=== PATIENT | male | born 1955 | race Caucasian/White ===

== ENCOUNTER 2017-02-04 13:58 | Inpatient (IN) | payer OTHER ==
[~2017-02-04] VITALS: Ht 167.6 cm; Wt 60.5 kg
[2017-02-04 11:40] VITALS: BP 123/75
[2017-02-04] MEDS ORDERED: SEROQUEL100 MG PO (14:33)
[2017-02-04] MEDS ORDERED: WEL100 PO (14:34)
[2017-02-04 15:13] LABS: BASOPHIL % 0.4 % (0-2); PLATELET COUNT 269 x10^3mcL (130-400)
[2017-02-04 15:19] LABS: CALCIUM 9.7 mg/dL (8.5-10.1); CARBON DIOXIDE 30.4 mmol/L (21-32); CHLORIDE SERUM 107 mmol/L (98-107); CREATININE SERUM 0.8 mg/dL (0.7-1.3); GFR1 > 60 mL/min; GLUCOSE SERUM 128 mg/dL (74-106); SODIUM SERUM 141 mmol/L (136-145)
[2017-02-04 15:24] LABS: ALBUMIN 3.6 g/dL (3.4-5.0); ALKALINE PHOSPHATASE 98 U/L (46-116); ALT/SGPT 20 U/L (16-63); AST/SGOT 21 U/L (15-37); BILIRUBIN TOTAL 0.2 mg/dL (0.20-1.00); MAGNESIUM 2.1 mg/dL (1.8-2.4); TOTAL PROTEIN, SERUM 7.9 g/dL (6.4-8.2)
[2017-02-04 15:51] LABS: UA SPECIFIC GRAVITY 1.015 (1.005-1.035); microscopic required? YES; urine erythrocyte TRACE (NEGATIVE)
[2017-02-04 15:53] LABS: AMPHETAMINE QUAL UR NONE DETECTED (NEG <=1000)
[2017-02-04 17:26] LABS: CHOLESTEROL/HDL RATIO 2.7
[2017-02-04 17:35] LABS: T3 TOTAL 1.04 ng/mL
[2017-02-04 17:48] LABS: FREE T4 0.83 ng/dL (0.76-1.46); FREE THYROXINE INDEX 2.5 ug/dL (1.4-4.5)
[2017-02-04 21:45] VITALS: BP 150/94
[2017-02-04 23:40] VITALS: BP 123/75
[2017-02-05 03:15] VITALS: BP 133/96
[2017-02-05 05:07] LABS: BASOPHIL % 0.7 % (0-2); PLATELET COUNT 250 x10^3mcL (130-400); RED CELL DISTRIBUTION WIDTH 14.2 % (11.5-14.5)
[2017-02-05 05:16] LABS: CARBON DIOXIDE 26.4 mmol/L (21-32); CHLORIDE SERUM 105 mmol/L (98-107); CREATININE SERUM 0.8 mg/dL (0.7-1.3); GFR1 > 60 mL/min; GLUCOSE SERUM 113 mg/dL (74-106); MAGNESIUM 1.8 mg/dL (1.8-2.4); PHOSPHOROUS 3.2 mg/dL (2.5-4.9); POTASSIUM SERUM 3.7 mmol/L (3.5-5.1); SODIUM SERUM 140 mmol/L (136-145)
[2017-02-05 07:30] VITALS: BP 141/97
[2017-02-05 10:23] VITALS: Ht 167.6 cm; Wt 60.5 kg
[2017-02-05 12:14] VITALS: BP 130/77
[2017-02-05 16:54] VITALS: BP 97/68
[2017-02-05 19:15] VITALS: BP 123/74
[2017-02-05 23:16] VITALS: BP 138/86
[2017-02-06 03:30] VITALS: BP 126/73
[2017-02-06 07:51] VITALS: BP 114/68; BP 138/93
[2017-02-06 14:12] VITALS: BP 122/92
[2017-02-06 18:08] VITALS: BP 111/73
[2017-02-06 21:26] VITALS: BP 120/79
[2017-02-07 06:22] VITALS: BP 122/72
[2017-02-07 09:50] VITALS: BP 122/66
[2017-02-07] MEDS ORDERED: ASPIRIN LOW DOS81 MG PO (11:02)
[2017-02-07] MEDS ORDERED: FLO4 PO (11:04)
[2017-02-07] MEDS ORDERED: LIPI10 PO (11:05)
[2017-02-07] MEDS ORDERED: BACTRIM DS1 TAB PO (11:06)
[2017-02-07] MEDS ORDERED: LAC PO (11:07)
[2017-02-07] MEDS ORDERED: TEST STRIPS1 EACH MC (11:11)
[2017-02-07] MEDS ORDERED: ACCU-CHEK1 EACH MC (11:12)
[2017-02-07] MEDS ORDERED: WELSR100 PO (11:20)
[2017-02-07] MEDS ORDERED: SEROQUEL100 MG PO (11:21)
[2017-02-07] MEDS ORDERED: ZESTRIL10 MG PO (11:26)
[2017-02-07 13:31] VITALS: BP 122/66
== END 2017-02-07 15:39 | disposition home or self-care (01) | DRG 885 ==
LOC: ED 13:58 → MU 16:48 → DU 16:48 → IC 20:11 → DU 02-06 11:39 → MU 02-07 06:30
PROVIDERS: Emergency Medicine; ADMIT Family Medicine
DX: F25.0 Schizoaffective disorder, bipolar type (principal); N39.0 Urinary tract infection, site not specified; R45.851 Suicidal ideations; S00.03XA Contusion of scalp, initial encounter; B18.2 Chronic viral hepatitis C; E83.39 Other disorders of phosphorus metabolism; F15.10 Other stimulant abuse, uncomplicated; E11.65 Type 2 diabetes mellitus with hyperglycemia; E11.51 Type 2 diabetes mellitus with diabetic peripheral angiopathy without gangrene; F17.210 Nicotine dependence, cigarettes, uncomplicated; I25.2 Old myocardial infarction; Z68.20 Body mass index [BMI] 20.0-20.9, adult; X79.XXXA Intentional self-harm by blunt object, initial encounter; Y92.018 Other place in single-family (private) house as the place of occurrence of the external cause
CPT/HCPCS: 80307; 82962; 83880; 84439; 90715; G0480; J0696; J7030; Q0092; Q0163

== ENCOUNTER 2017-02-09 19:39 | Emergency (ER) | payer OTHER ==
[~2017-02-09 19:39] MED LIST: ACCU-CHEK1 EACH MC; ASPIRIN LOW DOS81 MG PO; BACTRIM DS1 TAB PO; FLO4 PO; LAC PO; LIPI10 PO; SEROQUEL100 MG PO; TEST STRIPS1 EACH MC; WEL100 PO; WELSR100 PO; ZESTRIL10 MG PO
[2017-02-10] VITALS: BP 135/78
== END 2017-02-10 | disposition home or self-care (01) ==
LOC: ED 19:39
DX: T51.91XA Toxic effect of unspecified alcohol, accidental (unintentional), initial encounter (principal); Y92.89 Other specified places as the place of occurrence of the external cause

== ENCOUNTER 2017-04-08 20:05 | Inpatient (IN) | payer OTHER ==
[~2017-04-08] VITALS: Ht 167.6 cm; Wt 59.5 kg
--- NOTE | 2017-04-08 20:29 | NUR ---
PT BIB AMBULANCE WITH PT ON 5150 HOLD. PER MEDICS, PT WAS AT HOME WITH FAMILY AND WAS "BEATING SELF ON THE HEAD AGAINST A WALL TO HURT HIMSELF". PER MEDICS, PT WITH 1/2 INCH LAC TO R POSTERIOR OF HEAD. PT REPORTS TO "HITTING MY HEAD WITH A DUMB GUILLEN. I JUST LOST IT WITH MYSELF." PT DENIES SI OR HI AT THIS TIME. PT STATES TO VISUAL HALLUCINATIONS AT TIMES AND SEEING DOUBLE. PT DENIES AUDITORY HALLUCINATIONS. PT DENIES HAVING PAIN AT THIS TIME. PT ALSO STATES HE WAS IN ED APPROX [address] RESULT SHOWED "ABNORMAL WHITE MATTER IN THE PETERSEN MATTER". PT A&OX4, SPEECH IS CLEAR WITH FLIGHT OF THOUGHTS NOTED, RESP EVEN AND UNLABORED, BLEEDING TO HEAD ISCONTROLLED, NO LAC NOTED AT THIS TIME, ONLY ABRASIONS TO RIGHT ANTERIOR AND POSTERIOR OF HEAD. PT PERSONALLY BELONGINGS REMOVED FROM PT AND PLACED IN RADIO ROOM, PT IN FULL VIEW FROM NURSES STATION FOR SAFETY. PT ON FULL CM.
--- NOTE | 2017-04-08 20:50 | NUR ---
PT STATES TO CHRONIC URINARY DISCOMFORT X 1 YR, STATING NEED TO PUSH TO URINATE . PT HAD BM WHILE PROVIDING URINE SPECIMEN FOR UDS. WILL ASSIST PT INTO CLEAN GOWN.
[2017-04-08 21:05] LABS: CALCIUM 9.1 mg/dL (8.5-10.1); CARBON DIOXIDE 31.9 mmol/L (21-32); CHLORIDE SERUM 102 mmol/L (98-107); CREATININE SERUM 0.8 mg/dL (0.7-1.3); GFR1 > 60 mL/min; GLUCOSE SERUM 100 mg/dL (74-106); POTASSIUM SERUM 4.2 mmol/L (3.5-5.1); SODIUM SERUM 139 mmol/L (136-145)
[2017-04-08 21:07] LABS: BASOPHIL % 0.5 % (0-2); PLATELET COUNT 392 x10^3mcL (130-400)
[2017-04-08 21:10] LABS: ALBUMIN 3.5 g/dL (3.4-5.0); ALKALINE PHOSPHATASE 83 U/L (46-116); ALT/SGPT 18 U/L (16-63); AST/SGOT 17 U/L (15-37); BILIRUBIN TOTAL 0.2 mg/dL (0.20-1.00); TOTAL PROTEIN, SERUM 7.6 g/dL (6.4-8.2)
--- NOTE | 2017-04-08 21:23 | NUR ---
PT MEDICATED PER ORDER. SEE EMAR
--- NOTE | 2017-04-08 22:21 | NUR ---
PT STATES NEED TO URINATE. PT PROVIDED WITH URINAL AND PT NOTED TO BE MOANING WITH PAIN WHILE URINATING.
--- NOTE | 2017-04-08 23:33 | NUR ---
PT SLEEPING WITH RESP EVEN AND UNLABORED, WAKES TO NAME AND TACTILE STIMULI. PT ON FULL CM WITH NO DISTRESS NOTED.
[2017-04-09 00:22] LABS: microscopic required? YES; urine erythrocyte 3+ (NEGATIVE)
[2017-04-09 00:40] LABS: AMPHETAMINE QUAL UR NONE DETECTED (NEG <=1000)
--- NOTE | 2017-04-09 05:10 | NUR ---
PT A&OX4,NO ACUTE DISTRESS NOTED, RESP EVEN AND UNLABORED, SITTING UP IN BED, POSITIONED TO COMFORT, ON FULL CM. PT STATES TO BEING DIABETIC AND HAVING "HEART PROBLEMS AND MY HEART RATE IS USUALLY 120's" PT DENIES SI AT THIS TIME. PT NOTED WITH HR OF 72 AND VSS. PT BS 182 AT THIS TIME.
--- NOTE | 2017-04-09 05:34 | NUR ---
PT MEDICATED PER ORDER. SEE EMAR.
--- NOTE | 2017-04-09 05:43 | NUR ---
PT RESTING IN BED, A&XO4, NO ACUTE DISTRESS NOTED, RESP EVEN AND UNLABORED. PT STATES TO ROOMATE TAKING DUMBBELLS FROM PT HANDS TO KEEP HIM FROM INJURING SELF AT TIME OF INCIDENT.
--- NOTE | 2017-04-09 07:10 | NUR ---
PT'S EYES CLOSED BUT AROUSABLE, CM- VSS. WILL CONTINUE TO MONITOR PT. AWAITING PLACEMENT FOR PT.
--- NOTE | 2017-04-09 09:20 | NUR ---
PT'S EYES CLOSED BUT AROUSABLE. CM- SR. VSS. WILL CONTINUE TO MONITOR PT
--- NOTE | 2017-04-09 10:01 | NUR ---
PT'S EYES CLOSED BUT AROUSABLE, CM-SR. VSS. WILL CONTINUE TO MONITOR PT
--- NOTE | 2017-04-09 13:00 | NUR ---
PT AMBULATED TO BATHOOM WITH STEADY GAIT
--- NOTE | 2017-04-09 14:02 | NUR ---
PT GIVEN LUNCH TRAY, PER MD ORDER
[2017-04-09 14:40] LABS: T3 TOTAL 1.23 ng/mL
[2017-04-09 14:48] LABS: CHOLESTEROL/HDL RATIO 3.7; MAGNESIUM 2.2 mg/dL (1.8-2.4); PHOSPHOROUS 3.9 mg/dL (2.5-4.9)
[2017-04-09 15:00] LABS: FREE THYROXINE INDEX 2.5 ug/dL (1.4-4.5)
--- NOTE | 2017-04-09 16:31 | NUR ---
WAITING FOR ROOM AVAILABILITY
--- NOTE | 2017-04-09 16:54 | NUR ---
REPORT GIVEN TO KHLOE
--- NOTE | 2017-04-09 17:34 | NUR ---
LYNNE TERAN RN AT BEDSIDE AND PERFORMING ADMISSION ASSESSMENT ON PATIENT.
[2017-04-09 17:48] VITALS: BP 140/84
--- NOTE | 2017-04-09 17:56 | NUR ---
RECEIVED PATIENT FROM ED VIA GUERNEY, ALERT AND ORIENTED, TELE # 11 SR, IV ACCESS TO L HAND WNL, NO C/O PAIN AT THIS TIME, ORIENTED PATIENT TO ROOM AND SURROUNDINGS, BED RAILS UP X 2, CALL LIGHT WITHIN REACH, WILL ENDORSE CARE TO PRIMARY NURSE KHLOE BLOOM
--- NOTE | 2017-04-09 19:20 | NUR ---
REPORT TAKEN FROM KHLOE. ALL CARE ENDORSSED.
--- NOTE | 2017-04-09 19:40 | NUR ---
RECEIVED PT IN BED AWAKE ALERT AND ORIENTED X4. PT IS 5150 HOLD. PT HIT HIS HEAD WITH HAND WEIGHT LEFT, NO OPEN WOUND BUT PT HAD PAIN AT PLACE. PT WAS TRYING TO KILL HIMSELF. BUT PT IS CALM AT TIME. WILL MEDICATE. SITTER AT PT BEDSIDE, PT DENIES HALLUCINATION. RESPIRATION IS EVEN AND UNLABORED. BOWEL SOUND [id number]. IV TO LH INTACT. SAFETY IN PLACE. WILL CONTINUE TO MONITOR.
[2017-04-09 20:28] VITALS: BP 134/77
--- NOTE | 2017-04-10 00:32 | NUR ---
REPORT GIVEN TO VERONA, ALL CARE ENDORSSED.
--- NOTE | 2017-04-10 01:58 | NUR ---
TOOK OVER PATIENT CARE FROM DHARA, REPORT GIVEN. PATIENT SLEEPING THIS TIME .
[2017-04-10 05:10] VITALS: BP 115/79
--- NOTE | 2017-04-10 05:15 | NUR ---
CHECKED AT INTERVALS FOR NEEDS AND SAFETY. NO HALLUCINATION NOTED, REMAINED CALM AND QUITE THE ENTIRE SHIFT.
--- NOTE | 2017-04-10 07:00 | NUR ---
PT WAS ENDORSE TO ME THIS MORNING. PT IS SLEEPING VERY COMFORTABLE. PT IS 50/51 HOLD. PT IS BREATHING EVEN AND UNLABORED. IV TO THE L HAND. NS AT 100 ML/HR. NO REDNESS OR SWELLING NOTED. CALL LIGHT IN REACH. BED IN LOW POSITION BY NURSE STATION. WILL CONTINUE PLAN OF CARE.
[2017-04-10 09:40] VITALS: BP 123/82
--- NOTE | 2017-04-10 16:50 | NUR ---
WENT IN WITH DR SCHREIBER TO SPEAK WITH PATIENT REGARDING GOING TO [facility] VOLUNTARILY. PT AGREEABLE TO PLAN. EXPRESSED WILLINGNESS TO GO. CASE MANAGEMENT, DR ANDERSON, AND [facility] MADE AWARE. [facility] WILLING TO TAKE PATIENT ON A VOLUNTARY BASIS.
--- NOTE | 2017-04-10 17:37 | NUR ---
PT HAS BEEN ON PHONE SPEAKING WITH SOMEONE. PT NOW SAYING HE HAS TO GO AND DOES NOT WANT TO GO TO [facility] ANYMORE.
--- NOTE | 2017-04-10 17:45 | NUR ---
PER DR SCHREIBER (PSYCH), PT [id number] CLEAR. CASE MANAGEMENT MADE AWARE.
--- NOTE | 2017-04-10 17:46 | NUR ---
DR ANDERSON AT BEDSIDE TO SPEAK WITH PATIENT.
--- NOTE | 2017-04-10 17:59 | NUR ---
PT IS SITTING IN CHAIR. PT IS A/O X4. NO RESP DISTRESS OR DISCOMFORT NOTED. PT DENIES ANY PAIN AT THIS TIME. WILL ENDORSE PT TO INCOMING NURSE.
--- NOTE | 2017-04-10 18:35 | NUR ---
EXPLAINED ALL DISCHARGE INSTRUCTIONS TO PT. PT AGREED AND SIGNED ALL DOCUMENTS. PT IS A/O X4, DENIES HALLUCINATIONS AT THIS TIME. PT IS GETTING DRESS AND HE IS READY TO LEAVE WILL CALL NURSE STATION.
--- NOTE | 2017-04-10 20:47 | NUR ---
PT ALERT AND AWAKE. VERBAL WITH CLEAR SPEECH. NO S/S OF DISTRESS NOTED. DENIES ANY PAIN. IV TO LEFT HAND DISCONTINUED; TOLERATED WELL. PT DISCHARGED HOME IN STABLE CONDITION WITH ALL PERSONAL BELONGINGS AND ESCORTED BY SECURITY PROFESSIONALS DOWN TO CAB.
== END 2017-04-10 20:44 | disposition home or self-care (01) | DRG 917 ==
LOC: ED 20:05 → DU 04-09 13:00
PROVIDERS: Emergency Medicine; ADMIT Family Medicine
DX: T40.7X1A Poisoning by cannabis (derivatives), accidental (unintentional), initial encounter (principal); G92 Toxic encephalopathy; N39.0 Urinary tract infection, site not specified; D68.69 Other thrombophilia; F25.0 Schizoaffective disorder, bipolar type; B18.2 Chronic viral hepatitis C; I10 Essential (primary) hypertension; E11.59 Type 2 diabetes mellitus with other circulatory complications; E11.65 Type 2 diabetes mellitus with hyperglycemia; E11.51 Type 2 diabetes mellitus with diabetic peripheral angiopathy without gangrene; E78.5 Hyperlipidemia, unspecified; F15.10 Other stimulant abuse, uncomplicated; F14.10 Cocaine abuse, uncomplicated; F12.10 Cannabis abuse, uncomplicated; F17.210 Nicotine dependence, cigarettes, uncomplicated; Z91.14 Patient's other noncompliance with medication regimen; Z79.82 Long term (current) use of aspirin; Z79.84 Long term (current) use of oral hypoglycemic drugs; Y92.009 Unspecified place in unspecified non-institutional (private) residence as the place of occurrence of the external cause
CPT/HCPCS: 82962; 83880; 84439; G0480; J1200; J7030; Q0092

== ENCOUNTER 2017-06-13 09:57 | Emergency (ER) | payer OTHER ==
[~2017-06-13] VITALS: Ht 172.7 cm; Wt 71.7 kg
[2017-06-13 11:39] VITALS: BP 130/74
== END 2017-06-13 11:41 | disposition home or self-care (01) ==
LOC: ED 09:57
DX: S61.211A Laceration without foreign body of left index finger without damage to nail, initial encounter (principal); S51.812A Laceration without foreign body of left forearm, initial encounter; E11.9 Type 2 diabetes mellitus without complications; I25.2 Old myocardial infarction; F17.210 Nicotine dependence, cigarettes, uncomplicated; W22.09XA Striking against other stationary object, initial encounter; Y93.89 Activity, other specified; Y99.8 Other external cause status; Y92.89 Other specified places as the place of occurrence of the external cause
CPT/HCPCS: J2001; Q0092

== ENCOUNTER 2017-07-31 23:15 | Emergency (ER) | payer OTHER ==
[~2017-07-31] VITALS: Ht 170.2 cm; Wt 65.8 kg
[2017-08-01 00:12] LABS: BASOPHIL % 0.5 % (0-2); PLATELET COUNT 247 x10^3mcL (130-400)
[2017-08-01 00:18] LABS: RED CELL DISTRIBUTION WIDTH 15.3 % (11.5-14.5)
[2017-08-01 00:24] LABS: CHLORIDE SERUM 104 mmol/L (98-107); CREATININE SERUM 0.8 mg/dL (0.7-1.3); GFR1 > 60 mL/min; GLUCOSE SERUM 123 mg/dL (74-106); POTASSIUM SERUM 3.6 mmol/L (3.5-5.1); SODIUM SERUM 142 mmol/L (136-145)
[2017-08-01 00:36] LABS: ALBUMIN 3.4 g/dL (3.4-5.0); ALKALINE PHOSPHATASE 79 U/L (46-116); ALT/SGPT 21 U/L (16-63); AST/SGOT 19 U/L (15-37); BILIRUBIN TOTAL 0.2 mg/dL (0.20-1.00); T4(THYROXINE) 6.9 ug/dL (4.7-13.3); TOTAL PROTEIN, SERUM 7.2 g/dL (6.4-8.2)
[2017-08-01 00:41] LABS: AMPHETAMINE QUAL UR NONE DETECTED (NEG <=1000)
[2017-08-01 09:01] VITALS: BP 130/80
== END 2017-08-01 09:20 ==
LOC: ED 23:15
PROVIDERS: Emergency Medicine
DX: F25.9 Schizoaffective disorder, unspecified (principal); E11.9 Type 2 diabetes mellitus without complications; F31.9 Bipolar disorder, unspecified; B19.20 Unspecified viral hepatitis C without hepatic coma; I25.2 Old myocardial infarction; F17.210 Nicotine dependence, cigarettes, uncomplicated; F12.90 Cannabis use, unspecified, uncomplicated
CPT/HCPCS: 36415; 83880; G0480

== ENCOUNTER 2019-09-17 21:00 | Inpatient (IN) | payer OTHER ==
[~2019-09-17] VITALS: Ht 160 cm; Wt 62.0 kg
--- NOTE | 2019-09-17 21:00 | NUR ---
PT ARIVED VIA GUERNEY ACCOMPANIED BY TRANSPORT ENERGY SCHEDULER FROM [place], PT IS A/OX4, NO COMPLAINTS OF BROWN OR DIZZINESS AT THIS TIME, PT DENIES PAIN OR SOB AT THIS TIME, COMPLAINS OF DYSPNEA UPON ECXERHTION, PERIPHERAL PULSES PALPABLE THROUGHOUT, NO EDEMA NOTED, LUNG SOUNDS CTA, NO SOB AT THIS TIME, BOWEL SOUNDS ACTIVE, ABD, SOFT, ROUND, NONTENDER, PT VOIDS FREE OF BURNING OR IRRITATION, SMALL SKIN TEAR TO THE 5TH DIDGIT OF THE LEFT FOOT, ALL PT NEEDS ATTENDED TO, SIDE RAILS UP X2, BED IN THE LOWEST POSITION, CALL LIGHT WITHIN REACH, SAFETY PRECAUTIONS IN PLACE, WILL CONTINUE TO MONITOR.
[2019-09-17] MEDS ORDERED: VRAYLAR3 MG PO (21:37)
[2019-09-17] MEDS ORDERED: COR6 PO (21:39)
[2019-09-17] MEDS ORDERED: PLA75 PO (21:40)
[2019-09-17] MEDS ORDERED: SEROQUEL300 MG PO (21:41)
[2019-09-17 21:43] VITALS: BP 108/81
--- NOTE | 2019-09-18 00:24 | NUR ---
PT RESTING IN BED WITH NO ACUTE DISTRESS NOTED AT THIS TIME, PT DENIES PAIN OR SOB AT THIS TIME, ALL PT NEEDS ATTENDED TO, SAFETY PRECAUTIONS IN PLACE, WILL CONTINUE TO MONITOR
[2019-09-18 02:05] VITALS: BP 108/81
--- NOTE | 2019-09-18 02:49 | NUR ---
PT RESTING IN BED WITH NO DISTRESS NOTED AT THIS TIME, NO SIGNS OF PAIN, RESPIRATIONS EVEN AND UNLABORED, ALL PT NEEDS ATTENDED TO, SAFETY PRECAUTIONS IN PLACE, WILL CONTINUE TO MONITOR
[2019-09-18 05:07] VITALS: BP 107/79
--- NOTE | 2019-09-18 05:17 | NUR ---
PT RESTED COMFORTABLY THROUGH THE NIGHT, PT DENIED PAIN THROUGH SHIFT, PT HAD NO EPISODEDS OF CHEST PAIN OR SOB, ALL PT NEEDS ATTENDED TO DURING CARE, WILL CONTINUE TO MONITOR AND ENDORSE CARE ONCOMING SHIFT
[2019-09-18 06:21] LABS: UA SPECIFIC GRAVITY 1.015 (1.005-1.035); microscopic required? YES; urine erythrocyte TRACE (NEGATIVE)
[2019-09-18 06:31] LABS: AMPHETAMINE QUAL UR NONE DETECTED (See below)
[2019-09-18 06:37] LABS: BASOPHIL % 1.2 % (0-2); PLATELET COUNT 219 x10^3mcL (130-400)
[2019-09-18 06:58] LABS: CALCIUM 8.4 mg/dL (8.5-10.1); CARBON DIOXIDE 23.4 mmol/L (21-32); CHLORIDE SERUM 104 mmol/L (98-107); GFR1 > 60 mL/min; GLUCOSE SERUM 135 mg/dL (74-106); MAGNESIUM 2.1 mg/dL (1.8-2.4); POTASSIUM SERUM 3.4 mmol/L (3.5-5.1); SODIUM SERUM 138 mmol/L (136-145)
[2019-09-18 07:01] LABS: MAGNESIUM 2.1 mg/dL (1.8-2.4); PHOSPHOROUS 3.9 mg/dL (2.5-4.9)
[2019-09-18 07:02] LABS: T3 TOTAL 0.99 ng/mL
[2019-09-18 07:09] LABS: FREE T4 0.93 ng/dL (0.76-1.46); T4(THYROXINE) 5.5 ug/dL (4.7-13.3)
--- NOTE | 2019-09-18 07:25 | NUR ---
RECEIVED PT FROM REAL ESTATE ADMINISTRATIVE ASSISTANT, ASSESSED AND DOCUMENTED. STABLE. DENIES ANY PAIN THIS TIME. SAFTEY PRECAUTIONS ARE IN PLACE. WILL MONITOR.
[2019-09-18 07:46] VITALS: BP 115/80
[2019-09-18 08:31] LABS: RED CELL DISTRIBUTION WIDTH 20.6 % (11.5-14.5)
[2019-09-18 08:32] LABS: rbc morphology (normal/abnorm) ABNORMAL (NORMAL)
--- NOTE | 2019-09-18 09:00 | NUR ---
INFORMED ABOUT K=3.4. SHE SAID THAT IS OK AND NOT PLANNING TO GIVE ANY MEDICINE. CALLED DIETARY AND INFORMED, REQUEST FOR BANANA AND AVOCADO IN HIS MEALS. PT IS STABLE.
--- NOTE | 2019-09-18 09:42 | NUR ---
CANCELLATION REQUESTED FOR ECHOCARDIOGRAM
--- NOTE | 2019-09-18 11:30 | NUR ---
PT CALLED AND SAID HE IS HAVING SOB. PT IS ANXIOUS. V/S CHECKED AND STABLE. BP=94/69 WITH MAP 77, HR 92, RESP=20 AND SPO2 98% IN RA. DENIES ANY CHEST PAIN THIS TIME. RHYTHM SR WITH ST DEPRESSED, APPLIED O2 2L VIA N/C FOR COMFORT. INFORMED RT FOR BREATHING TX, CHARGE NURSE AWARE, INFORMED ABOUT EVERYTHING. PT RESTING IN BED COMFORTABLY THIS TIME. PT WAS TALKING ABOUT HIS GIRLFRIEND AND WAS GETTING ANXIOUS AND ANGRY, WENT TO USE THE RESTROOM AND CAME BACK TO BED, RESTING IN THE BED NOW. PT SAID SOB IS BETTER NOW, NOTICED PT CRYING SOME TIMES. EMOTIONAL SUPPORT GIVEN, WILL CLOSELY MONITOR THE PT. DOCTOR AWARE.
[2019-09-18 12:07] VITALS: BP 94/69
--- NOTE | 2019-09-18 12:59 | NUR ---
PT IS STILL ANXIOUS, CRYING AND GETTING ANGRY SOMETIMES, HALLUCINATING LIKE TALKING TO SOMEONE SOMETIMES, ALSO EPISODES OF GETTING HAPPY ALSO NOTED. INFORMED ABOUT PT MOOD CHANGE. SHE ORDERED ATIVAN PO 1MG AND GIVEN. WILL MONITOR. INFORMED PT ABOUT HOSPITAL PHARMACY DOESNOT CARRY ONE OF HIS HOME MED VRAYLAR, HE SAID HE WILL TELL HIS GIRLFRIEND TO BRING THE MED.
--- NOTE | 2019-09-18 14:00 | NUR ---
PT RESTING IN BED COMFORTABLY, DENIES ANY PAIN. STABLE. NO ANXIETY NOTED THIS TIME.
--- NOTE | 2019-09-18 16:00 | NUR ---
CAME AND EXPLAINED TO THE PT ABOUT CARDIAC CATH TOMORROW AND PT SIGNED CONSENT. STABLE.
[2019-09-18 16:08] VITALS: BP 105/72
--- NOTE | 2019-09-18 19:10 | NUR ---
PT RESTING IN BED COMFORTABLY, STABLE. DENIES ANY PAIN. GAVE REPORT TO CARTON PACKAGING MACHINE OPERATOR NURSE.
--- NOTE | 2019-09-18 19:15 | NUR ---
RECIEVED PT RESTING IN BED WITH NO ACUTE DISTRESS NOTED AT THIS ITME WITH GIRLFRIEND AT BEDSIDE, ASSESSMENT PERFORMED AT THIS TIME, PT DENIES PAIN OR SOB AT THIS TIME, PT IS A/OX4 WITH NO COMPLAINTS OF BROWN OR DIZZINESS AT THIS TIME, ALL NEEDS AND CONCERNS ATTENDED TO, SAFETY PRECAUTIONS IN PLACE, WILL CONTINUE TO MONITOR
--- NOTE | 2019-09-18 20:10 | NUR ---
TALKED TO DR NOLAN ABOUT PT POTASSIUM LEVEL OF 3.4 AND THAT HE HAS LASIX ORDERED, SHE SAID NO COVERAGE AND OK TO GIVE LASIX
[2019-09-18 20:11] VITALS: BP 112/71
[2019-09-18 23:12] LABS: CALCIUM 8.8 mg/dL (8.5-10.1); CARBON DIOXIDE 30.8 mmol/L (21-32); CHLORIDE SERUM 104 mmol/L (98-107); CREATININE SERUM 1.1 mg/dL (0.7-1.3); GFR1 > 60 mL/min; POTASSIUM SERUM 3.4 mmol/L (3.5-5.1); SODIUM SERUM 140 mmol/L (136-145)
[2019-09-18 23:22] LABS: BASOPHIL % 0.9 % (0-2); PLATELET COUNT 206 x10^3mcL (130-400)
[2019-09-18 23:36] LABS: GLUCOSE SERUM 48 mg/dL (74-106)
--- NOTE | 2019-09-18 23:42 | NUR ---
LAB CALLED AND INFORMED ME OF GLUCOSE FROM [facility] WAS 48, CHECKED PT, PT WAS ASYMPTOMATIC, SPOT CHECKED THE BLOOD SUGAR AND IT WAS 91, INFORMED DR NOLAN, SAID IT IS OK, NO NEW ORDERS AT THIS TIME.
--- NOTE | 2019-09-19 00:33 | NUR ---
PT RESTING IN BED WITH NO ACUTE DISTRESS NOTED AT THIS TIME, PT DENIES PAIN OR SOB AT THIS TIME, ALL PT NEEDS ATTENDED TO AT THIS TIME, SAFETY PRECAUTIONS IN PLACE, WILL CONTINUE TO MONITOR
--- NOTE | 2019-09-19 05:05 | NUR ---
PT RESTED COMFORTABLY THROUGH THE NIGHT WITH NO DISTRESS NOTED DURING CARE, PT DENIED PAIN OR SOB THROUGH SHIFT, ALL PT NEEDS WERE ATTENDED TO DURING CARE, SAFETY PRECAUTIONS REMAINED IN PLACE, DURING SHIFT, WILL CONTINUE TO MONITOR AND ENDORSE CARE
[2019-09-19 05:39] VITALS: BP 99/68
--- NOTE | 2019-09-19 06:27 | NUR ---
CHG PREP WIPES DONE
[2019-09-19 06:29] LABS: PLATELET COUNT 210 x10^3mcL (130-400)
[2019-09-19 06:37] LABS: CALCIUM 8.7 mg/dL (8.5-10.1); CARBON DIOXIDE 29.9 mmol/L (21-32); CHLORIDE SERUM 104 mmol/L (98-107); CREATININE SERUM 1.1 mg/dL (0.7-1.3); GFR1 > 60 mL/min; GLUCOSE SERUM 118 mg/dL (74-106); POTASSIUM SERUM 3.8 mmol/L (3.5-5.1); SODIUM SERUM 139 mmol/L (136-145)
[2019-09-19 06:50] LABS: RED CELL DISTRIBUTION WIDTH 20.8 % (11.5-14.5)
--- NOTE | 2019-09-19 07:35 | NUR ---
RECEIVED HAND OFF REPORT FROM KAI BLOOM, PATIENT LAYING UPINE IN BED, A/O X4, WITH NO COMPLAINTS. PATIETN AWARE OF PENDING [employer] PROCEDURE. TELE [address] ON PATIETN SHOWING SINUS TACH. NPO SINCE MIDNIGHT [facility] NURSES CAME AND TRANSPORTED PATIENT AND CHART TO [employer]. REMOVED TELE 18 AND TAKEN TO GENESIS IN MONITOR ROOM. CALLED ICU TO GIVE REPORT TO MERCEDES. GOING TO BE IN ICU BED 8 AFTER PROCEDURE
[2019-09-19 09:46] VITALS: BP 109/53
--- NOTE | 2019-09-19 09:46 | NUR ---
RECEIVED FROM ORE MINER VIA ICU BED, S/P LEFT HEART CATHERIZATION AND CORONARY ANGIOGRAPHY AND PCI OF PROXIMAL AMD MID LAD WITH ARNAUD X2. SEEN PATIENT AWAKE,ALERT, ORIENTED X3. BREATHING E/U ON ROOM AIR. RIGHT GROIN PUNCTURE SITE WITH DRSG NOTED CDI, NO BLEEDNING, HEMATOMA OR SWELLING TO SITE. PATIENT MADE AWARE NOT TO MOVE RLE AND STAYS BEDREST FOR 8HRS. KPET HOB NOT EXCEED 10 DEGREE. STATED BACK PAIN IS 8/10 ON PAIN SCALE, REFUSED PAIN MEDS OFFERRED. STATED JUST WANTED TO SLEEP. S/L TO LFA INTACT AND PATENT. ORIEINTING TO ROOM ENVIRONMENT. CALL LIGHT PLACED WITHIN EASY REACH. SIDERAILS UP X2. WILL CONTINUE TO MONITOR PER PROTOCAL.
--- NOTE | 2019-09-19 10:30 | NUR ---
DELIVERED PATIENT BELONGINGS TO ICU BED 8. GAVE VERBAL REPORT TO MERCEDES BLOOM
--- NOTE | 2019-09-19 11:06 | NUR ---
CONSTANTLY MOANING STATED FEELING SO ANXIOUS. DOCTOR ISRAEL HERE ORDER ATIVAN PRN. ATIVAN 1MG IVP SLOWLY GIVEN. WILL CONTINUE TO MONITOR.
--- NOTE | 2019-09-19 11:11 | NUR ---
SEEN BY DOCTOR ENNIS AMD MEDICAL TEAM. PATIENT MADE AWARE OF CURRENT CONDITION AND PLAN OF CARE.
--- NOTE | 2019-09-19 11:58 | NUR ---
VOIDED X1 USING URINAL 250ML YELLOW URINE IN COLOR.
[2019-09-19 12:00] VITALS: BP 116/89
--- NOTE | 2019-09-19 12:37 | NUR ---
AWAKE, HAVING CARDIAC DIET LUNCH, TOLERATING WELL, NO ASPIRATION. SCHEDULED MEDS GIVEN.
--- NOTE | 2019-09-19 13:42 | NUR ---
PATIENT KEEPS SITTING UP IN BED AT THIS TIME. PATIENT EDUCATED ON THE IMPORTANCE OF LYING FLAT, POST CARDIAC CATH PROCEDURE. PATIENT VERBALIZED UNDERSTANDING AND MEDICATED WITH ATIVAN AT THIS TIME, SEE EMAR. WILL CONTINUE TO MONITOR.
--- NOTE | 2019-09-19 14:47 | NUR ---
SEEN BY DOCTOR DAVID. PATIENT DENIES CHEST PAIN STATED TIRED ON HIS RIGHT LEG AND BACK. RIGHT GROIN PUNCTURE SITE WITH DRSG DRY/INTACT. PER [facility] ICU DIRECTOR, PATIENT CAN SIT UP AFTER 1530HRS. PATIENT MADE AWARE.
[2019-09-19 16:00] VITALS: BP 117/87
--- NOTE | 2019-09-19 16:22 | NUR ---
LAYING ON HIS LEFT SIDE, NO BLEEDING TO RIGHT GROIN, DENIES PAIN, UD=378, S/L TO LFA INTACT AND PATENT. VOIDED X2 AFTER HEART CATHERIZATION.
--- NOTE | 2019-09-19 17:44 | NUR ---
ABLED TO FINISH 100% OF CARDIAC DINNER. VOIDED X1 USING URINAL DURING DINNER. NOTED PATIENT'S MOOD CHANGED VERY OFTEN THROUGHOUT SHIFT, MOST OF THE TIME HE APPEARS ANXIOUS, ATIVAN PRN GIVEN X2 DURING THE SHIFT. REORIENTATION PROVIDED AT TIMES. ALL NEEDS ATTENDED. FALL PRECAUTION MAINTAINED.
[2019-09-19 19:30] VITALS: BP 102/81
--- NOTE | 2019-09-19 19:30 | NUR ---
REC'D REPORT FROM SWEETIE BLOOM TO ASSUME CARE. A&OX4 PT RESPONDS TO VERBAL COMMANDS. PERRLA NOTED. EENT FREE OF DISCHARGE, NO JVD NOTED. PT IS BREATHING E/U LUNG SOUNDS CTA. CHEST RISE EQUAL AND SYMMETRICAL, RR IS ELEVATED 30S. EQUIPMENT STERILIZER IN PLACE SHOWING SINUS TACH, HR 106, BP 102/81, MAP 87. PT REPORTS CHEST PAIN 4-5/10. PT DESCRIBES PAIN INTERMITTENT PRESSURE. CHEST WALL STABLE. PULSES ARE MOD X4 CAP REFILL <3 SEC. PERIPHERAL IV NOTED TO LFA INTACT, PATENT, DSG CDI, SALINE LOCK. PT IS AMBULATORY. CARDIAC DIET. ABD IS SOFT AND FLAT. BOWEL SOUNDS ACTIVE X4 QUADRANTS. PT VOIDS FREELY W/ URINAL. R GROIN ANGIO SITE FROM PCI NO ACTIVE BLEEDING NOTED, DSG CDI. PT HAS A HX OF METH USE, PSYCHOSIS, BIPOLAR DISORDER, AND SCHIZOAFFECTIVE TYPE. PT IS SEEN BEING BYRD AT TIMES. ALL NEEDS MET AT THIS TIME. WILL CONTINUE TO MONITOR.
--- NOTE | 2019-09-19 20:00 | NUR ---
ALL DUE ROUTINE MEDS PROVIDED, REASSESS FOR CHEST PAIN. PT STATES FEELING RELIEF.
[2019-09-19 23:02] VITALS: BP 98/64
[2019-09-20 03:26] VITALS: BP 97/58
[2019-09-20 05:16] LABS: BASOPHIL % 0.6 % (0-2); PLATELET COUNT 207 x10^3mcL (130-400)
[2019-09-20 05:18] LABS: RED CELL DISTRIBUTION WIDTH 20.8 % (11.5-14.5)
[2019-09-20 05:20] LABS: rbc morphology (normal/abnorm) ABNORMAL (NORMAL)
[2019-09-20 05:26] LABS: CALCIUM 8.4 mg/dL (8.5-10.1); CHLORIDE SERUM 107 mmol/L (98-107); CREATININE SERUM 1.1 mg/dL (0.7-1.3); GFR1 > 60 mL/min; GLUCOSE SERUM 124 mg/dL (74-106); MAGNESIUM 2.1 mg/dL (1.8-2.4); PHOSPHOROUS 3.6 mg/dL (2.5-4.9); POTASSIUM SERUM 4.2 mmol/L (3.5-5.1); SODIUM SERUM 140 mmol/L (136-145)
[2019-09-20 07:20] VITALS: BP 106/73
--- NOTE | 2019-09-20 07:20 | NUR ---
PATIENT AWAKE AND ORIENTED TO PERSON, PLACE AND TIME. PATIENT DENIES SHORTNESS OF BREATH, NAUSEA/VOMITING AT THIS TIME. TELE # 8 SHOWS SINUS RHYTHMS WITH EPISODES OF TACHYCARDIA. IV HEPLOCK AT LFA. SCDS TO BLE. CALL LIGHT WITHIN REACH. SIDE RAILS UP X3. BED IS AT LOWEST POSITION AND ALARM IS ON.
[2019-09-20 07:53] VITALS: Ht 160 cm; Wt 62.0 kg
--- NOTE | 2019-09-20 08:11 | NUR ---
PATIENT C/O ANXIETY AND ASKED FOR ATIVAN. ATIVAN 1MG IVP MEDICATED TO THE PATIENT.
--- NOTE | 2019-09-20 10:33 | NUR ---
PATIENT ROUNDS WITH DR. ENNIS AND RESIDENTS. CHARGE NURSE AND PRIMARY NURSE AT BEDSIDE. UPDATES PROVIDED AND POC DISCUSSED. WILL CONTINUE TO MONITOR.
[2019-09-20 11:15] VITALS: BP 104/57
--- NOTE | 2019-09-20 11:20 | NUR ---
PATIENT IS RESTLESS/AGITATED: GETTING OUT OF BED, PUSHING TABLE AND BACK TO BED TWICE. THEN PATIENT MOVING IN BED VERY OFTEN; ATIVAN 1MG IVP WAS ADMINISTERED TO THE PATIENT TO CALM HIM DOWN.
--- NOTE | 2019-09-20 12:17 | NUR ---
PATIENT WAS YELLING AT NURSE AND WANTED TO LEAVE HOSPITAL AMA. PATIENT WAS EXPLAINED THAT HE SHOULD WAIT FOR DOCTOR TO DISCHARGE HIM, BUT PATIENT SAID, "I WANT TO GET OUT OF HERE NOW." DR. FREDY HERNANDEZ WAS PAGED.
--- NOTE | 2019-09-20 12:24 | NUR ---
PATIENT PULLED OUT TELE MONITOR AND REFUSED TO BE PLACED BACK ON TO TELE.
--- NOTE | 2019-09-20 14:17 | NUR ---
REPORT GIVEN TO WOLF ROQUE FROM [facility]. CONCERNS ADDRESED. PATIENT WILL BE TRANSFERRED TO ROOM 238B, [facility].
--- NOTE | 2019-09-20 14:33 | NUR ---
THE PATIENT IS TRANSFERRED TO ROOM 238B, [facility] VIA WHEELCHAIR; ALL BELONGINGS INCLUDING HIS WALLET SENT TO THE ROOM WITH HIM (PATIENT IS HOLDING HIS WALLET IN HIS HANDS). MYA, ACCEPTING NURSE RECEIVED THE PATIENT.
--- NOTE | 2019-09-20 14:45 | NUR ---
PATIENT WAS RECEIVED FROM ICU. PATIENT DENIES ANY PAIN OR DICOMFORT AT THIS TIME. PATIENT IS A&OX4, FOLLOWS COMMANDS AND COOPERATES WELL. LUNG SOUNDS CTA BILATERALLY. DENIES ANY CHEST PAIN. NORMOACTIVE BSX4, VOIDS WELL. ALL QUESTIONS AND CONCERNS HAVE BEEN ADDRESSED AT THIS TIME. WILL CONTINUE TO MONITOR PATIENT.
--- NOTE | 2019-09-20 17:40 | NUR ---
PATIENT IS A&OX4, FOLLOWS COMMANDS AND COOPERATES WELL. FRIEND IS PRESENT. PATIENT IS CURRENTLY RESTING AND EATING DINNER WHILE TALKING TO FRIEND. PATIENT DENIES ANY PAIN AT THIS TIME. NO DISCOMFORT HAS BEEN STATED. DENIES CHEST PAIN. IV SITE IS CDI AND FLUSHES WELL. ALL QUESTIONS AND CONCERNS HAVE BEEN ADDRESSED. WILL CONTINUE TO MONITOR.
[2019-09-20 18:14] VITALS: BP 108/67
--- NOTE | 2019-09-20 18:57 | NUR ---
PATIENT REPORTED THAT HE WANTED TO LEAVE AMA. MD WAS ABLE TO TALK TO PATIENT IN ORDER TO STAY DUE TO BEING DEEMED UNSTABLE, YET NOT ON A 5150 HOLD. PATIENT AGREED AND WAS WILLING TO TAKE ATIVAN.
--- NOTE | 2019-09-20 20:00 | NUR ---
PT A/A/O X4, GIRLFRIEND AT BEDSIDE. PT WAS GOING TO AMA BUT CHANGED HIS MIND. A/A/O X4. DENIES DIZZINESS AND HEADACHE. BREATH SOUNDS CLEAR. BREATHING EVEN AND UNLABORED ON ROOM AIR. DENIES CHEST PAIN AND PRESSURE. BOWEL SOUNDS ACTIVE. NO C/O N/V AND ABD PAIN. DRESSING ON THE RIGHT INGUINAL AREA C/D/I. SCAB ON THE RIGHT KNEE MANE NOTED. IV SALINE LOCK NOTED ON THE LEFT FOREARM. MADE PT COFMORTABLE. PLACED CALL LIGHT WITH IN REACH. WILL CONTINUE TO MONITOR.
[2019-09-20 20:35] VITALS: BP 106/75
--- NOTE | 2019-09-21 00:57 | NUR ---
PT RESTING WITH EYES CLOSED. NO DISTRESS AND DISCOMFORT NOTED. WILL CONTINUE TO MONITOR.
[2019-09-21 05:49] VITALS: BP 105/71
--- NOTE | 2019-09-21 06:02 | NUR ---
PT RESTING WITH EYES CLOSED. EASILY AROUSABLE WITH VERBAL STIMULI. NO SIGNIFICANT CHANGES NOTED. WILL ENDORSE TO THE AM NURSE ACCORDINGLY.
[2019-09-21 06:09] LABS: BASOPHIL % 0.6 % (0-2); PLATELET COUNT 209 x10^3mcL (130-400)
[2019-09-21 06:18] LABS: CALCIUM 8.7 mg/dL (8.5-10.1); CARBON DIOXIDE 25.9 mmol/L (21-32); CHLORIDE SERUM 105 mmol/L (98-107); GFR1 > 60 mL/min; GLUCOSE SERUM 128 mg/dL (74-106); MAGNESIUM 2.1 mg/dL (1.8-2.4); PHOSPHOROUS 3.7 mg/dL (2.5-4.9); POTASSIUM SERUM 4.6 mmol/L (3.5-5.1); SODIUM SERUM 139 mmol/L (136-145)
[2019-09-21 06:26] LABS: RED CELL DISTRIBUTION WIDTH 21.2 % (11.5-14.5)
[2019-09-21 08:56] VITALS: BP 104/70
[2019-09-21] MEDS ORDERED: BRILINTA90 M1 PO (09:42)
[2019-09-21] MEDS ORDERED: LIPI20 PO (09:43)
[2019-09-21] MEDS ORDERED: ZES10 PO (09:44)
[2019-09-21] MEDS ORDERED: SERO100 PO (09:44)
--- NOTE | 2019-09-21 10:07 | NUR ---
AAO TIMES 4. NO TELE, MED SURG PATIENT. LUNGS CTA. NO SOB. O2 SAT ON RA 100%.BS'S ACTIVE TIMES 4. JOSEPH STRONG. COOPERATIVE. NO C/O PAIN.
--- NOTE | 2019-09-21 10:40 | NUR ---
PATIENT ANGRY AND WANTING TO GO AMA. HE SAID HE HAD TO GO TO THE BATHROOM AND HE CALLED BUT NOBODY ANSWERED, SO HE THREW HIS WATER ON THE FLOOR. I OFFERED TO GET HIM HIS DISCHARGE AND A CAB, HE DECLINED. THEN HE STARTED CRYING SAYING HIS GIRLFRIEND WAS PLAYING WITH HIS HEAD AND HE LET ME REMOVE HIS IV. I GOT HIM TO WAIT FOR ME TO GET HIM THE DISCHARGE, BUT HE STILL DECLINES A TAXI CAB. I GAVE HIM HIS DISCHARGE INSTRUCTIONS, AND HE KNOWS TO OUTSIDE RESIDENTIAL SALES PROFESSIONAL HIS PRESCRIPTIONSM AT [facility]. HE SAID HE WOULD WALK. HE STOPPED CRYING BY THE TIME I WALKED HIM OUT TO THE FRONT LOBBY. HE APOLOGIZED AND SAT DOWN IN ONE OF THE CHAIRS.
[2019-09-21 11:05] VITALS: BP 104/70
[2019-10-18] MEDS ORDERED: LEVAQUIN500 M1 PO (13:15)
[2019-10-31] MEDS ORDERED: FLO4 PO (17:07)
[2019-10-31] MEDS ORDERED: ASPIRIN LOW DOS81 MG PO (17:07)
[2019-10-31] MEDS ORDERED: LASIX40 MG PO (17:07)
[2019-10-31] MEDS ORDERED: BRILINTA90 M1 PO (17:07)
[2019-10-31] MEDS ORDERED: SERO100 PO (17:07)
[2019-10-31] MEDS ORDERED: LEVAQUIN500 M1 PO (17:07)
[2019-10-31] MEDS ORDERED: LIPI20 PO (17:07)
[2019-10-31] MEDS ORDERED: COR6 PO (17:07)
== END 2019-09-21 11:21 | disposition home or self-care (01) | DRG 246 ==
LOC: IC 21:00 → DU 21:00 → IC 09-19 09:54 → DU 09-20 14:56 → MU 09-20 17:08
PROVIDERS: Internal Medicine Geriatric Medicine; ADMIT Internal Medicine
PROC: 4A023N8 Measurement of Cardiac Sampling and Pressure, Bilateral, Percutaneous Approach (ICD-10-PCS; 2019-09-19)
PROC: B2110ZZ Fluoroscopy of Multiple Coronary Arteries using High Osmolar Contrast (ICD-10-PCS; 2019-09-19)
PROC: B2160ZZ Fluoroscopy of Right and Left Heart using High Osmolar Contrast (ICD-10-PCS; 2019-09-19)
PROC: 027035Z Dilation of Coronary Artery, One Artery with Two Drug-eluting Intraluminal Devices, Percutaneous Approach (ICD-10-PCS; principal; 2019-09-19 08:00)
DX: I25.110 Atherosclerotic heart disease of native coronary artery with unstable angina pectoris (principal); I50.23 Acute on chronic systolic (congestive) heart failure; N39.0 Urinary tract infection, site not specified; I42.9 Cardiomyopathy, unspecified; E11.9 Type 2 diabetes mellitus without complications; J44.9 Chronic obstructive pulmonary disease, unspecified; I51.7 Cardiomegaly; F12.10 Cannabis abuse, uncomplicated; F15.10 Other stimulant abuse, uncomplicated; F17.210 Nicotine dependence, cigarettes, uncomplicated; Z79.84 Long term (current) use of oral hypoglycemic drugs
CPT/HCPCS: 92928; C9600; C1874; CLHCL; 82962; 83880; 84439; C1725; C1760; C1769; C1876; C1887; C1894; G0378; J0696; J1644; J1940; J2001; J2060; J2250; J3010; J7040; J7050; Q0092; Q9967

== ENCOUNTER 2019-10-15 13:05 | Inpatient (IN) | payer OTHER ==
[~2019-10-15] VITALS: Ht 160 cm; Wt 65.3 kg
[~2019-10-15 13:05] MED LIST changes: +BRILINTA90 M1 PO; +COR6 PO; +LIPI20 PO; +PLA75 PO; +SERO100 PO; +SEROQUEL300 MG PO; +VRAYLAR3 MG PO; +ZES10 PO
[2019-10-15 13:14] VITALS: Ht 160 cm; Wt 65.3 kg
[2019-10-15 16:20] LABS: PLATELET COUNT 195 x10^3mcL (130-400); RED CELL DISTRIBUTION WIDTH 19.6 % (11.5-14.5)
[2019-10-15 16:34] LABS: CALCIUM 9.4 mg/dL (8.5-10.1); CARBON DIOXIDE 27.4 mmol/L (21-32); CHLORIDE SERUM 106 mmol/L (98-107); CREATININE SERUM 1.1 mg/dL (0.7-1.3); GFR1 > 60 mL/min; GLUCOSE SERUM 99 mg/dL (74-106); POTASSIUM SERUM 4.3 mmol/L (3.5-5.1); SODIUM SERUM 141 mmol/L (136-145)
[2019-10-15 16:38] LABS: ALKALINE PHOSPHATASE 102 U/L (46-116); ALT/SGPT 59 U/L (16-63); AST/SGOT 45 U/L (15-37); BILIRUBIN TOTAL 0.7 mg/dL (0.20-1.00); MAGNESIUM 2.1 mg/dL (1.8-2.4); TOTAL PROTEIN, SERUM 6.8 g/dL (6.4-8.2)
[2019-10-15 16:39] LABS: ALBUMIN 3.3 g/dL (3.4-5.0)
[2019-10-15 19:23] LABS: CHOLESTEROL/HDL RATIO 6.3
[2019-10-15 19:28] LABS: T3 TOTAL 0.93 ng/mL
[2019-10-15 19:29] LABS: FREE T4 1.04 ng/dL (0.76-1.46); T4(THYROXINE) 5.8 ug/dL (4.7-13.3)
[2019-10-15 21:51] VITALS: BP 128/86
[2019-10-15 23:52] LABS: UA SPECIFIC GRAVITY 1.015 (1.005-1.035); microscopic required? YES; urine erythrocyte TRACE (NEGATIVE)
[2019-10-16 00:22] LABS: AMPHETAMINE QUAL UR POSITIVE (See below)
[2019-10-16 06:08] VITALS: BP 134/94
[2019-10-16 06:48] LABS: BASOPHIL % 0.5 % (0-2); PLATELET COUNT 172 x10^3mcL (130-400)
[2019-10-16 07:26] LABS: CALCIUM 8.5 mg/dL (8.5-10.1); CARBON DIOXIDE 25.5 mmol/L (21-32); CHLORIDE SERUM 106 mmol/L (98-107); CREATININE SERUM 1.1 mg/dL (0.7-1.3); GFR1 > 60 mL/min; GLUCOSE SERUM 121 mg/dL (74-106); MAGNESIUM 1.8 mg/dL (1.8-2.4); PHOSPHOROUS 2.8 mg/dL (2.5-4.9); POTASSIUM SERUM 3.6 mmol/L (3.5-5.1); SODIUM SERUM 141 mmol/L (136-145)
[2019-10-16 07:42] LABS: RED CELL DISTRIBUTION WIDTH 19.2 % (11.5-14.5)
[2019-10-16 09:40] VITALS: BP 133/87
[2019-10-16 13:45] VITALS: BP 126/88
[2019-10-16] MEDS ORDERED: PLAVIX75 M1 PO (15:54)
[2019-10-16] MEDS ORDERED: LIPITOR20 MG PO (15:54)
[2019-10-16] MEDS ORDERED: ASPIRIN ADULT L81 M3 PO (15:55)
[2019-10-16] MEDS ORDERED: CARVEDILOL ER40 MG PO (15:56)
[2019-10-16] MEDS ORDERED: OLANZAPINE2.5 M1 PO (15:58)
[2019-10-16 19:04] VITALS: BP 123/81
[2019-10-17 05:29] VITALS: BP 119/72
[2019-10-17 06:31] LABS: BASOPHIL % 0.3 % (0-2); PLATELET COUNT 177 x10^3mcL (130-400)
[2019-10-17 06:35] LABS: RED CELL DISTRIBUTION WIDTH 19.3 % (11.5-14.5)
[2019-10-17 06:49] LABS: CALCIUM 8.5 mg/dL (8.5-10.1); CARBON DIOXIDE 27.3 mmol/L (21-32); CHLORIDE SERUM 104 mmol/L (98-107); GFR1 > 60 mL/min; GLUCOSE SERUM 109 mg/dL (74-106); MAGNESIUM 1.9 mg/dL (1.8-2.4); SODIUM SERUM 141 mmol/L (136-145)
[2019-10-17 09:09] VITALS: BP 133/86
[2019-10-17] MEDS ORDERED: BRILINTA90 M1 PO (10:32)
[2019-10-17] MEDS ORDERED: FLO4 PO (10:32)
[2019-10-17] MEDS ORDERED: ATORVASTATIN CA40 M1 PO (10:33)
[2019-10-17] MEDS ORDERED: COR6 PO (10:34)
[2019-10-17] MEDS ORDERED: ECO81 PO (10:35)
[2019-10-17] MEDS ORDERED: LASIX40 MG PO (10:36)
[2019-10-17 13:09] VITALS: BP 115/80
[2019-10-17 14:22] VITALS: BP 108/78
[2019-10-17] MEDS ORDERED: SERO100 PO (14:46)
[2019-10-17] MEDS ORDERED: ZES10 PO (14:46)
[2019-10-17 14:54] LABS: CALCIUM 9.2 mg/dL (8.5-10.1); CARBON DIOXIDE 26.7 mmol/L (21-32); CHLORIDE SERUM 104 mmol/L (98-107); GFR1 > 60 mL/min; GLUCOSE SERUM 100 mg/dL (74-106); PHOSPHOROUS 4.5 mg/dL (2.5-4.9); SODIUM SERUM 140 mmol/L (136-145)
[2019-10-18] MEDS ORDERED: LEVAQUIN500 M1 PO (13:15)
[2019-10-31] MEDS ORDERED: ASPIRIN LOW DOS81 MG PO (17:07)
[2019-10-31] MEDS ORDERED: BRILINTA90 M1 PO (17:07)
[2019-10-31] MEDS ORDERED: COR6 PO (17:07)
[2019-10-31] MEDS ORDERED: LIPI20 PO (17:07)
[2019-10-31] MEDS ORDERED: LASIX40 MG PO (17:07)
[2019-10-31] MEDS ORDERED: SERO100 PO (17:07)
[2019-10-31] MEDS ORDERED: FLO4 PO (17:07)
[2019-10-31] MEDS ORDERED: LEVAQUIN500 M1 PO (17:07)
== END 2019-10-17 16:38 | disposition home health service (06) | DRG 291 ==
LOC: ED 13:05 → DU 18:10
PROVIDERS: Emergency Medicine; ADMIT Family Medicine
DX: I11.0 Hypertensive heart disease with heart failure (principal); J80 Acute respiratory distress syndrome; N39.0 Urinary tract infection, site not specified; I50.43 Acute on chronic combined systolic (congestive) and diastolic (congestive) heart failure; B18.2 Chronic viral hepatitis C; E11.9 Type 2 diabetes mellitus without complications; I25.10 Atherosclerotic heart disease of native coronary artery without angina pectoris; N40.0 Benign prostatic hyperplasia without lower urinary tract symptoms; E78.5 Hyperlipidemia, unspecified; F12.10 Cannabis abuse, uncomplicated; F17.210 Nicotine dependence, cigarettes, uncomplicated; I25.2 Old myocardial infarction; F25.0 Schizoaffective disorder, bipolar type; F15.10 Other stimulant abuse, uncomplicated; Z59.0 Homelessness; Z79.82 Long term (current) use of aspirin; Z68.24 Body mass index [BMI] 24.0-24.9, adult; Z95.5 Presence of coronary angioplasty implant and graft; Z91.14 Patient's other noncompliance with medication regimen
CPT/HCPCS: 82962; 83880; 84439; 97110-GP; 97116-GP; 99406; G0378; J0696; J1885; J1940; J7050

== ENCOUNTER 2019-10-30 14:29 | Emergency (ER) | payer OTHER ==
[~2019-10-30] VITALS: Ht 167.6 cm; Wt 60.3 kg
[~2019-10-30 14:29] MED LIST changes: +ASPIRIN ADULT L81 M3 PO; +ATORVASTATIN CA40 M1 PO; +CARVEDILOL ER40 MG PO; +ECO81 PO; +LASIX40 MG PO; +LEVAQUIN500 M1 PO; +LIPITOR20 MG PO; +OLANZAPINE2.5 M1 PO; +PLAVIX75 M1 PO
[2019-10-30 14:32] VITALS: Ht 167.6 cm; Wt 60.3 kg
[2019-10-30 16:12] VITALS: BP 142/106
[2019-10-31] MEDS ORDERED: FLO4 PO (17:07)
[2019-10-31] MEDS ORDERED: BRILINTA90 M1 PO (17:07)
[2019-10-31] MEDS ORDERED: ASPIRIN LOW DOS81 MG PO (17:07)
[2019-10-31] MEDS ORDERED: LEVAQUIN500 M1 PO (17:07)
[2019-10-31] MEDS ORDERED: LASIX40 MG PO (17:07)
[2019-10-31] MEDS ORDERED: SERO100 PO (17:07)
[2019-10-31] MEDS ORDERED: LIPI20 PO (17:07)
[2019-10-31] MEDS ORDERED: COR6 PO (17:07)
== END 2019-10-30 19:30 | disposition home or self-care (01) ==
LOC: ED 14:29
DX: S00.83XA Contusion of other part of head, initial encounter (principal); H11.31 Conjunctival hemorrhage, right eye; W18.30XA Fall on same level, unspecified, initial encounter; Y93.E1 Activity, personal bathing and showering; Y92.89 Other specified places as the place of occurrence of the external cause; Y99.8 Other external cause status